=== PATIENT | female | born 1990 | race American Indian/Alaskan Native ===

== ENCOUNTER 2016-12-15 06:35 | Day surgery (SDC) | payer SELFPAY ==
[~2016-12-15 06:35] MED LIST: ACD-A IV ONE
[2016-12-15 07:31] LABS: Basophils % (Auto) 0.6 % (0.0-1.8); Eosinophils % (Auto) 2.5 % (0.0-4.3); Hematocrit 40.5 % (30.3-42.9); Hemoglobin 13.5 gm/dl (10.1-14.3); Mean Corpuscular HGB Conc 33 % (30-34); Mean Corpuscular Hemoglobin 32 pg (28-32); Mean Corpuscular Volume 95 fl (79-97); Platelet Count 274 K/mm3 (140-440); Red Blood Count 4.25 M/mm3 (3.65-5.03); Red Cell Distribution Width 13.5 % (13.2-15.2); White Blood Count 11.5 K/mm3 (4.5-11.0)
[2016-12-15] MEDS ORDERED: MORPHINE IV ONE ×2 (09:46→10:06)
[2016-12-15] MEDS ORDERED: NACL 0.9% 1000 ML 1,000 ML IV ONE (09:46)
--- NOTE | 2016-12-15 09:50 | Emergency Department Report ---
ED Female HPI - General Chief complaint: Vaginal Bleeding Stated complaint: PELVIC PAIN/VAG BLEEDING 1 MONTH Time Seen by Provider: 12/15/16 09:47 Source: patient, EMS Mode of arrival: Wheelchair Limitations: No Limitations - History of Present Illness Initial comments: 26-year-old female presents with complaint of one month of intermittent heavy vaginal bleeding and severe sharp right-sided abdominal pain and nausea and vomiting since yesterday worsening and intensifying in nature. Patient is in severe distress screaming in pain when I examine her pointing to the right lower abdominal region stating she has horrendous pain. Patient is awake alert and oriented 3 state she smokes cigarettes and marijuana denies any other drug use denies any other major surgeries. Unaware of her blood type. Patient states she did not know that she was currently as I informed her given her current lab results. Patient actively writhing in pain during my exam appears to be in severe distress MD Complaint: vaginal bleeding, pelvic pain Onset/Timin -: days(s) Severity: moderate Severity scale (0 -10): 7 Quality: sharp Are you Now?: Yes Associated Symptoms: vaginal discharge, vaginal bleeding, abdominal pain, nausea /vomiting - Related Data Allergies Allergy/AdvReac Type Severity Reaction Status Date / Time No Known Allergies Allergy Verified 12/15/16 11:03 ED Review of Systems ROS: Stated complaint: PELVIC PAIN/VAG BLEEDING 1 MONTH Other details as noted in HPI Constitutional: denies: chills, fever Eyes: denies: eye pain, eye discharge, vision change ENT: denies: ear pain, throat pain Respiratory: denies: cough, shortness of breath, wheezing Cardiovascular: denies: chest pain, palpitations Endocrine: no symptoms reported Gastrointestinal: abdominal pain, nausea, vomiting. denies: diarrhea Genitourinary: denies: urgency, dysuria, discharge Musculoskeletal: denies: back pain, joint swelling, arthralgia Skin: denies: rash, lesions Neurological: denies: headache, weakness, paresthesias Psychiatric: denies: anxiety, depression Hematological/Lymphatic: denies: easy bleeding, easy bruising ED Past Medical Hx - Past Medical History Previous Medical History?: Yes Hx Asthma: Yes - Surgical History Past Surgical History?: No ED Physical Exam - General Limitations: No Limitations General appearance: alert, in no apparent distress - Head Head exam: Present: atraumatic, normocephalic - Eye Eye exam: Present: normal appearance, PERRL, EOMI - ENT ENT exam: Present: mucous membranes moist - Neck Neck exam: Present: normal inspection - Respiratory Respiratory exam: Present: normal lung sounds bilaterally. Absent: respiratory distress - Cardiovascular Cardiovascular Exam: Present: regular rate, normal rhythm. Absent: systolic murmur, diastolic murmur, rubs, gallop - GI/Abdominal GI/Abdominal exam: Present: soft, tenderness, guarding, rebound, rigid - Expanded GI/Abdominal Exam Expanded GI/Abdominal exam: Present: tenderness at [place]'s Point - Speculum exam: Present: vaginal bleeding (severe right-sided adnexal tenderness NO visible hemorrhage but positive vaginal bleeding in vault) Bi-manual exam: Present: cervical motion tendernes, adnexal tenderness - Extremities Exam Extremities exam: Present: normal inspection, full ROM, normal capillary refill - Back Exam Back exam: Present: normal inspection - Neurological Exam Neurological exam: Present: alert, oriented X3, CN II-XII intact, normal gait - Psychiatric Psychiatric exam: Present: normal affect, normal mood - Skin Skin exam: Present: warm, dry, intact, normal color. Absent: rash ED Course Vital Signs 12/15/16 12/15/16 12/15/16 06:47 09:47 09:49 Temperature 98.3 F Pulse Rate 52 L Respiratory 18 22 Rate Blood Pressure 132/70 138/90 Blood Pressure [Left] O2 Sat by Pulse 99 100 Oximetry 12/15/16 12/15/16 12/15/16 09:51 10:01 10:11 Temperature Pulse Rate 84 85 Respiratory 31 H 24 Rate Blood Pressure 138/90 138/88 138/90 Blood Pressure [Left] O2 Sat by Pulse 99 95 91 Oximetry 12/15/16 12/15/16 12/15/16 10:21 10:31 10:41 Temperature Pulse Rate 81 82 92 H Respiratory 26 H 14 18 Rate Blood Pressure 138/90 138/90 133/87 Blood Pressure [Left] O2 Sat by Pulse 96 99 98 Oximetry 12/15/16 12/15/16 10:51 11:00 Temperature 99.0 F Pulse Rate 95 H 86 Respiratory 22 14 Rate Blood Pressure 119/83 131/83 Blood Pressure 119/68 [Left] O2 Sat by Pulse 97 94 Oximetry ED Medical Decision Making - Lab Data Result diagrams: 12/15/16 07:13 12/15/16 10:09 - Medical Decision Making A/P: Suspicion for ruptured ectopic 1-I discussed case with WIRE REPAIRER Dr. Amin and ED attending Dr. Hurst 2-I am highly clinically suspicious the patient has an ectopic as she did not know she was and has current vaginal bleeding with severe abdominal pain and peritoneal signs 3-bedside ultrasound done by resource technician confirming high suspicion for ruptured ectopic Dr. Amin OBGYN Attending present at bedside, agrees, will take pt directly to OR for surgical management of ectopic, pt transferred to OR 4-patient made nothing by mouth given 1 L of normal saline and morphine with Zofran while in the ED 5-I explained to patient what is happening along with the attending physician patient understood the importance of addressing this issue emergently 6- charge nurse made aware of situation Critical care attestation.: If time is entered above; I have spent that time in minutes in the direct care of this critically ill patient, excluding procedure time. ED Disposition Clinical Impression: Ectopic Qualifiers: Location of ectopic : tubal Intrauterine status: without intrauterine Qualified Code(s): O00.10 - Tubal without intrauterine Disposition: OP ADMITTED IP TO THIS HOSP Is pt being admited?: Yes Does the pt Need Aspirin: No Condition: Stable Referrals: PRIMARY CARE, [Primary Care Provider] - 3-5 Days
[2016-12-15] MEDS ORDERED: DILAUDID IV ONE (10:05)
[2016-12-15] MEDS ORDERED: ZOFRAN IV ONE (10:09)
[2016-12-15 10:41] LABS: INR 0.87 (0.87-1.13)
[2016-12-15 10:49] LABS: Urine Drugs of Abuse Note Disclamer
--- NOTE | 2016-12-15 10:57 | Event Note ---
Date: 12/15/16 As is a 26-year-old female, previously unknown to me. She presented to the ER with lower abdominal pain and vaginal bleeding. Somewhat tender, has stable vital signs. Stat transabdominal/transvaginal ultrasound confirmed presence of ruptured ectopic . Type and screen is ordered. Gynecology, Dr. Amin , he has consulted emergently, he is going to take the patient to the operating room for emergent intervention. Pelvic examination will be deferred given presence of ectopic . Vital Signs 12/15/16 06:47 Temperature 98.3 F Pulse Rate 52 L Respiratory 18 Rate Blood Pressure 132/70 O2 Sat by Pulse 99 Oximetry Lab Results 12/15/16 12/15/16 12/15/16 Range/Units 07:13 07:13 07:13 WBC 11.5 H (4.5-11.0) K/mm3 RBC 4.25 (3.65-5.03) M/mm3 Hgb 13.5 (10.1-14.3) gm/dl Hct 40.5 (30.3-42.9) % MCV 95 (79-97) fl MCH 32 (28-32) pg MCHC 33 (30-34) % RDW 13.5 (13.2-15.2) % Plt Count 274 (140-440) K/mm3 Lymph % (Auto) 14.1 (13.4-35.0) % [place] % (Auto) 6.7 (0.0-7.3) % Eos % (Auto) 2.5 (0.0-4.3) % Baso % (Auto) 0.6 (0.0-1.8) % Lymph # 1.6 (1.2-5.4) K/mm3 [place] # 0.8 (0.0-0.8) K/mm3 Eos # 0.3 (0.0-0.4) K/mm3 Baso # 0.1 (0.0-0.1) K/mm3 Seg Neutrophils % 76.1 H (40.0-70.0) % Seg Neutrophils # 8.8 H (1.8-7.7) K/mm3 PT (12.2-14.9) Sec. INR (0.87-1.13) APTT (24.2-36.6) Sec. HCG, Quant 1182 H (0-4) mIU/mL Blood Type A POSITIVE Antibody Screen Negative 12/15/16 Range/Units 10:09 WBC (4.5-11.0) K/mm3 RBC (3.65-5.03) M/mm3 Hgb (10.1-14.3) gm/dl Hct (30.3-42.9) % MCV (79-97) fl MCH (28-32) pg MCHC (30-34) % RDW (13.2-15.2) % Plt Count (140-440) K/mm3 Lymph % (Auto) (13.4-35.0) % [place] % (Auto) (0.0-7.3) % Eos % (Auto) (0.0-4.3) % Baso % (Auto) (0.0-1.8) % Lymph # (1.2-5.4) K/mm3 [place] # (0.0-0.8) K/mm3 Eos # (0.0-0.4) K/mm3 Baso # (0.0-0.1) K/mm3 Seg Neutrophils % (40.0-70.0) % Seg Neutrophils # (1.8-7.7) K/mm3 PT 11.7 L (12.2-14.9) Sec. INR 0.87 (0.87-1.13) APTT 32.0 (24.2-36.6) Sec. HCG, Quant (0-4) mIU/mL Blood Type Antibody Screen
[2016-12-15] MEDS ORDERED: ZEMURON IV ONE (10:58)
[2016-12-15] MEDS ORDERED: QUELICIN ONE (10:58)
[2016-12-15] MEDS ORDERED: DIPRIVAN 10 MG/ML IV ONE (10:58)
[2016-12-15] MEDS ORDERED: XYLOCAINE MPF 2% ONE (10:58)
[2016-12-15] MEDS ORDERED: SUBLIMAZE ONE (10:58)
--- NOTE | 2016-12-15 11:04 | Ultrasound Report ---
ULTRASOUND PELVIC COMPLETE ULTRASOUND TRANSVAGINAL HISTORY: Abdominal pain during , beta hCG level 1182. TECHNIQUE: Transabdominal and transvaginal ultrasound with color and spectral doppler interrogation. The uterus is anteverted and measures 6.1 x 2.6 x 4.8 cm. No uterine fibroids. The endometrial stripe measures 5 mm. No intrauterine or gestational sac is identified. The right ovary measures 3.2 x 2.9 x 1.3 cm. There is a complex masslike lesion measuring 4.3 x 3.8 cm adjacent to the right ovary. There is no obvious pole or yolk sac although this is concerning for an ectopic . The left ovary measures 4.5 x 1.4 x 2.6 cm and is within normal limits. There is small fluid in the cul-de-sac. IMPRESSION: No intrauterine is visualized. There is a complex mass adjacent to the right ovary which could represent an ectopic although no gestational sac or pole is demonstrated. Please correlate with the patient's clinical presentation. Dr. Amin was present at the time of this examination.
[2016-12-15 11:09] LABS: Anion Gap 24 mmol/L; Blood Urea Nitrogen 8 mg/dL (7-17); Calcium 10.1 mg/dL (8.4-10.2); Carbon Dioxide 19 mmol/L (22-30); Chloride 102.7 mmol/L (98-107); Glucose 110 mg/dL (65-100); Potassium 3.8 mmol/L (3.6-5.0); Sodium 142 mmol/L (137-145)
--- NOTE | 2016-12-15 11:09 | Short Stay Summary ---
Short Stay Documentation Date of service: 12/15/16 Narrative H&P: Pt is a 26yo BF LMP 10/23/16presents to [facility] ER complaining of lower abdominal pain and vaginal bleeding. She is very tender, but has stable vital signs. Stat transabdominal/transvaginal ultrasound confirmed presence of ruptured ectopic . H/H is 13.5/40.5 and Bhcg is 1182. We will proceed with an emergent Laparoscopy for suspected ruptured right ectopic . Pt is consented and acknowledges that she may lose her right fallopian tube. - History Principal diagnosis: Ectopic H&P: obtained from office Past Medical History: other (precordial syndrome; asthma) Past Surgical History: No surgical history Social history: no significant social history, single - Allergies and Medications Current Medications: Allergies No Known Allergies Allergy (Verified 12/15/16 11:03) Active Medications Cefazolin Sodium (Ancef/Sterile Water 2 Gm/20 Ml) 2 gm in 20 mls @ 80 mls/hr IV PREOP NR PRN Reason: Protocol - Physical exam General appearance: severe distress HEENT: Atraumatic Lungs: Clear to auscultation Breasts: deferred Heart: Regular rate Gastrointestinal: tenderness Female Genitourinary: deferred Rectal Exam: deferred Extremities: No edema Neurological: Normal speech - Brief post op/procedure progress note Date of procedure: 12/15/16 Pre-op diagnosis: Suspected right ectopic Post-op diagnosis: same (Ruptured right ectopic with hematoperitoneum) Procedure: Laproscopic right partial salpingectomy Anesthesia: GETA Findings: A small uterus with normal left fallopian tube and ovary. Approximately 100mls of hematoperitoneum. A large mass in the distal portion of the right fallopian tube encompassing the right ovary and adherent to the right pelvic sidewall. Normal appendix. Surgeon: YAYA ROTH Estimated blood loss: 50-100ml Pathology: list (right fallopian tube) Specimen disposition: to lab Condition: stable - Hospital course Hospital course: Unremarkable. - Disposition Condition at discharge: Stable Disposition: DISCHARGED TO HOME OR SELFCARE - Discharge Diagnoses (1) Ectopic Status: Resolved Qualifiers: Location of ectopic : tubal Intrauterine status: without intrauterine Qualified Code(s): O00.10 - Tubal without intrauterine Short Stay Discharge Plan Activity: no restrictions Diet: regular Wound: open to air, keep clean and dry Follow up with: PRIMARY CARE, [Primary Care Provider] - 3-5 Days YAYA ROTH MD [Staff Physician] - 14 Days Prescriptions: HYDROcodone/APAP 5-325 [[place] 5/325] 1 each PO Q6HR PRN #30 tablet PRN Reason: Pain Ibuprofen [Motrin] 800 mg PO Q8HR PRN #30 tablet PRN Reason: Moder Pain Unrelieved By [place]
[2016-12-15 11:15] LABS: Bilirubin,Urine NEG (Negative); Blood,Urine MOD (Negative); Ketones,Urine NEG (Negative); Leukocyte Esterase,Urine TR (Negative); Mucus,Urine FEW /HPF; Nitrite,Urine POS (Negative); Protein,Urine <15 mg/dL mg/dL (Negative); RBC,Urine < 1.0 /HPF (0.0-6.0); Urobilinogen,Urine < 2.0 mg/dL (<2.0)
[2016-12-15] MEDS ORDERED: ANCEF/STERILE WATER 2 GM/20 ML IV ONE (11:28)
[2016-12-15] MEDS ORDERED: DILAUDID IV PRN (11:30)
--- NOTE | 2016-12-15 11:30 | Anesthesia Consultation ---
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
--- NOTE | 2016-12-15 11:31 | Anesthesia Day of Surgery ---
Anesthesia Day of Surgery - Day of Surgery Patient Examined: Yes Patient H&P Reviewed: Yes Patient is NPO: Yes
[2016-12-15] MEDS ORDERED: NACL 0.9% 1000 ML 1,000 ML ONE (11:58)
[2016-12-15] MEDS ORDERED: ZOFRAN IV PRN (12:00)
[2016-12-15] MEDS ORDERED: ROBINUL ONE ×2 (12:00→12:15)
[2016-12-15] MEDS ORDERED: NEOSTIGMINE ONE (12:00)
[2016-12-15] MEDS ORDERED: DECADRON ONE (12:00)
[2016-12-15] MEDS ORDERED: ZOFRAN ONE (12:00)
[2016-12-15] MEDS ORDERED: ANCEF/STERILE WATER 2 GM/20 ML 2 GM/20 ML SYRINGE IV NR (12:00)
[2016-12-15] MEDS ORDERED: MARCAINE 0.5% INFILTRATI ONE (12:15)
[2016-12-15] MEDS ORDERED: NACL 0.9% IR ONE ×2 (12:15)
--- NOTE | 2016-12-15 12:59 | Post Anesthesia Evaluation ---
- Post Anesthesia Evaluation Patient Participated: Yes Airway Patent: Yes Stable Respiratory Function: Yes Temp > 96.8F: Yes Pain Manageable: Yes Adequeate Hydration: Yes Anesthesia Complications: No Block Receding Appropriately: Not Applicable
--- NOTE | 2016-12-15 13:02 | Operative Report ---
Operative Report Operative Report: Date of procedure: 12/15/2016 Pre-operative diagnosis: 1. Abdominal pain 2. Suspected right ectopic Post-operative diagnosis: Confirmed right ectopic with a hematoperitoneum Procedure name(s): Laparoscopic right partial salpingectomy Surgeon: Jacoby Amin MD Care Partner: None Anesthesia: General endotracheal intubation by Dr. Dai EBL: 100 mL's Findings: A small uterus with normal left fallopian tube and ovary. Approximately 100 MLS of hematoperitoneum. A large mass in the distal portion of the right fallopian tube encompassing the right ovary and both adherent to the right pelvic sidewall. Normal appendix. Procedure: After the patient was correctly identified, she was prepped and draped in usual sterile fashion and placed in dorsolithotomy position. First the bladder was catheterized using Mesa catheter. Next a speculum was placed in vaginal vault and the anterior lip of the cervix was grasped using single- tooth tenaculum. The uterine manipulator was then placed and the tenaculum and speculum were removed. Attention was then turned to the abdomen where first a periumbilical incision was made using the skin knife, and the Optiview trocar was inserted under direct visualization. After an adequate amount of abdominal insufflation visualization of the pelvic organs found the uterus to be small with normal left fallopian tube and ovary. There was approximately 100 amounts of blood in the peritoneal cavity. There was a large mass in the distal portion of the right fallopian tube which included the right ovary and both were adherent to the right pelvic sidewall. Next a suprapubic incision and a right lateral incision were made through which 5 mm trochars were placed in order to aid in manipulation of the pelvic organs. The right adnexal mass was dissected from the right pelvic sidewall using blunt dissection, and the right ovary was from the right ectopic using blunt dissection. The distal portion of the right fallopian tube was then excised using the tripolar cautery by clamping cauterizing and cutting across the distal portion of fallopian tube and excising the distal portion of the fallopian tube. The mass was removed using the Endopouch and sent to pathology. Copious amounts or irrigation was then performed and after good hemostasis was assured Tisseel sealant was sprayed across the right salpingectomy site. Again the right ovary was found to be normal, and the appendix was also found to be normal. At this point the procedure was considered complete. All instruments removed from abdomen. The abdomen was deflated and the periumbilical incision was closed using 0 Vicryl suture in a [id number] configuration of the fascia followed by 4-0 Vicryl suture in a subcuticular fashion on the skin. The suprapubic and right lateral incisions were closed in similar fashion. Each incision was infiltrated using 0.5% Marcaine solution. The Mesa catheter was removed, the uterine manipulator also removed, the patient tolerated the procedure well and was transported to recovery in stable condition.
[2016-12-15] MEDS ORDERED: NORCO 5/325 PO PRN (14:12)
[2016-12-15 17:14] VITALS: BP 123/82
== END 2016-12-15 15:35 | disposition home or self-care (01) ==
LOC: ED 06:35 → OR 11:45
PROVIDERS: ATTEND Emergency Medicine
DX: O00.90 Unspecified ectopic pregnancy without intrauterine pregnancy (principal); J45.909 Unspecified asthma, uncomplicated; F17.210 Nicotine dependence, cigarettes, uncomplicated
CPT/HCPCS: 36415; 59151; 76801; 76817; 80048; 80307; 81001; 84702; 85025; 85610; 85730; 86850; 86900; 86901; 87076; 87086; 87186; 88305; 88342; 96361; 96374; 96375; 96376; 99285; A4217; J0330; J0690; J1100; J1170; J2270; J2405; J2704; J2710; J3010; J7030